=== PATIENT | female | born 1985 | race Caucasian/White ===

== ENCOUNTER 2022-12-02 05:51 | Emergency (ER) | payer MEDICAID, SELFPAY ==
[2022-12-02 05:55] VITALS: BP 120/68; PULSE 79; RESP 20; TEMP 36.9; O2SAT 99
--- NOTE | 2022-12-02 06:00 | RT.EKG_ITS ---
APPROVED REPORT Exam: Resting ECG Reason for Exam: chest pain Patient Location: E HR:72 bpm ECG Measurements Heart Rate 72 AXIS MS 169 P 30 QRSd 78 QRS 41 QT 365 T 23 QTc 399 Conclusion Sinus rhythm...normal P axis, V-rate 60- 99
--- NOTE | 2022-12-02 06:16 | ED.GENADUL_ITS ---
Discharge Plan Disposition Patient Disposition: Home Condition: Stable Discharge Details Clinical Impression: Myalgia, Tick bite Primary Care Provider: None,None ED Provider: Freedom Feliciano Meds and New Rx's Prescriptions: New doxycycline hyclate 100 mg capsule 100 mg PO BID 21 Days Qty: 42 0RF naproxen [Naprosyn] 500 mg tablet 500 mg PO BID Qty: 20 0RF Continued ibuprofen 600 MG tablet 600 mg PO QID PRN PRN (Reason: Pain) Qty: 20 0RF Discontinued amoxicillin 500 MG capsule 500 mg PO TID Qty: 30 0RF Discharge Instructions Instructions: Tick Bite (ED), Musculoskeletal Pain (ED) Discharge Data Discharge Physician: Freedom Feliciano Medical Decision Making Patient with generalized body aches with no fever states that she has been bit by ticks. Labs are unremarkable but a Lyme titer was sent. COVID and flu are negative. Patient will be treated with doxycycline and Naprosyn and will call for confirmation of the Lyme titer. Lab Data Lab results reviewed: Yes I reviewed the patient's lab results. HPI General Date/Time Provider Initiated Documentation: 12/02/22 06:15 . HPI Narrative: Patient patient presents emergency department complaint of generalized body aches all over states that she sometimes gets it by ticks but has not seen a rash. Denies any fevers denies any chills. Related Data Home Medications Medication Instructions Recorded Confirmed ibuprofen 600 mg tablet 600 mg PO QID PRN PRN Pain #20 tabs 08/04/15 doxycycline hyclate 100 mg capsule 100 mg PO BID 21 days #42 caps 12/02/22 naproxen 500 mg tablet (Naprosyn) 500 mg PO BID #20 tabs 12/02/22 Previous Rx's Medication Instructions Recorded ibuprofen 600 mg tablet 600 mg PO QID PRN PRN Pain #20 tabs 08/04/15 doxycycline hyclate 100 mg capsule 100 mg PO BID 21 days #42 caps 12/02/22 naproxen 500 mg tablet (Naprosyn) 500 mg PO BID #20 tabs 12/02/22 Allergies Allergy/AdvReac Type Severity Reaction Status Date / Time aspirin AdvReac Mild Unverified 08/04/15 23:03 General Stated Complaint: GenMedical VALENCIA: 4 Review of Systems Narrative: Review of Systems: Constitutional: No fevers, chills, sweats Eye: No recent visual problems ENT: No ear pain, nasal congestion, sore throat Respiratory: No shortness of breath, cough Cardiovascular: No Chest pain, palpitations, syncope Gastrointestinal: No nausea, vomiting, diarrhea Genitourinary: No hematuria Ricky/Lymph: Negative for bruising tendency, swollen lymph glands Endocrine: Negative for excessive thirst, excessive hunger Musculoskeletal: No back pain, neck pain, , muscle pain, decreased range of motion Integumentary: No rash, pruritus, abrasions Neurologic: Alert & oriented X 4 Psychiatric: No anxiety, depression PFSH All Active Problems (Updated 12/02/22 @ 07:18 by Freedom Feliciano MD) Myalgia (Acute) Tick bite (Acute) Social History Smoking/Tobacco Use Status: Never Smoking risk assessment performed?: Yes Alcohol Intake: current Alcohol Intake frequency: a few times a month Drug use: Never Housing: house Do you feel safe at home: Yes Do you feel safe in your relationship?: Yes Exam Narrative Exam Narrative: Exam; vitals signs as reported above Constitutional; In no acute distress, afebrile General: cooperative, healthy appearing, comfortable and no acute distress HEENT: Head: normal to inspection, no palpable skull fracture and normocephalic Eyes: l: appearance normal, both eyes and all related structures ]Pupils: PERRL EOM: EOM intact bilaterally Direct ophthalmoscopy: normal light reflex, normal conjunctiva, normal visual acuity Neck no JVD, supple Neck: normal visual inspection, full ROM and no lymphadenopathy Chest Chest: normal inspection of the chest Respiratory : normal respiratory effort and able to speak in complete sentences Cardio Rate: regular rate Rhythm: regular rhythm normal heart sounds S1 and S2 no murmurs, gallops, or rubs GI Inspection: normal to inspection, normal bowel sounds, soft, non tender, non distended, no organomegally Back/Spine/ no CVA tenderness Thoracic/Lumbar Spine: no tenderness or deformities Skin no rashes or lesions Neuro: patient alert and no meningeal signs, Cranial Nerves: CN's II-XI intact bilaterally, Cognition: normal cognition, Speech: speech normal, Gait: normal gait, Depp tendon reflexes normal 2+ Extremities, no edema, full range of motion, normal strength Course Vital Signs Vital signs: Vital Signs Temperature 36.9 C 12/02/22 05:55 Pulse 79 12/02/22 05:55 Respiratory Rate 20 12/02/22 05:55 Blood Pressure 120/68 12/02/22 05:55 Pulse Oximetry 99 12/02/22 05:55 Temperature 36.9 C 12/02/22 05:55 Temperature Source Oral 12/02/22 05:55 Pulse 79 12/02/22 05:55 Respiratory Rate 20 12/02/22 05:55 Respiratory Effort Normal, Non-Labored 12/02/22 06:02 Blood Pressure 120/68 12/02/22 05:55 Blood Pressure Position Sitting 12/02/22 05:55 Pulse Oximetry 99 12/02/22 05:55 Oxygen Delivery Method Room Air 12/02/22 05:55 Oxygen Flow Rate 0 12/02/22 05:55 Pain Level 8 12/02/22 05:55
[2022-12-02 06:33] VITALS: RESP 16
[2022-12-02 06:41] LABS: Abs Immature Grans 0.03 10^3/uL (0.0-0.06); Absolute Basophil Count 0.05 10^3/uL (0.0-0.2); Absolute Eosinophil Count 0.06 10^3/uL (0.0-0.7); Absolute Lymphocyte Count 1.06 10^3/uL (1.2-3.4); Absolute Monocyte Count 0.43 10^3/uL (0.1-0.8); Absolute Neutrophil Count 3.64 10^3/uL (1.2-6.7); Basophils % 0.9; Eosinophils % 1.1; HCT 44.4 % (36.0-46.0); HGB 14.8 g/dL (11.2-15.7); Immature Grans % 0.6; Lymphocytes % 20.1; MCHC 33.3 % (32.0-36.0); MCV 90 fL (80-95); MPV 9.7 fL (8.0-11.0); Monocytes % 8.2; Neutrophils % 69.1; Platelet Count 262 10^3/uL (130-400); RBC 4.93 10^6/uL (3.93-5.22); RDW 12.7 % (11.7-14.6); RDW-SD 41.8 fL; WBC 5.27 10^3/uL (4.4-10.8)
[2022-12-02 06:56] LABS: ALT 30 U/L (14-59); AST 30 U/L (15-37); Albumin 3.5 g/dL (3.4-5.0); Alkaline Phosphatase 79 U/L (46-116); Anion Gap 9.1 mmol/L (3-11); BUN 14 mg/dL (7-18); Bilirubin, Total 0.4 mg/dL (0.2-1.0); CO2 23.9 mmol/L (21.0-32.0); CREATININE 0.7 mg/dL (0.55-1.02); Calcium 8.8 mg/dL (8.5-10.1); Chloride 103 mmol/L (98-107); Estimated GFR 114.16 (mL/min/1.73m2); Glucose 123 mg/dL (74-106); Potassium 4.1 mmol/L (3.5-5.1); Sodium 136 mmol/L (136-145); Total Protein 7.1 g/dL (6.4-8.2)
--- OUTSIDE RECORDS SUMMARY | 2022-12-02 08:03 | XMS_ITS | CCD ---
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 Allergies Unknown or Not Available. Procedures Unknown or Not Available. History of Immunizations Unknown or Not Available. Problems Unknown or Not Available. Results GLUCOSE TOLERANCE TEST THREE HOUR* - Collect Date/Time: 05/01/2021 09:38 Test Name Code Test Result Test Units Test Ref Rang e Fasting Glucose 3665-7 81 mg/dL L=80 H=11 6 1 hour Glucose 177 mg/dL L=80 H=200 2 hour Glucose 93 mg/dL L=80 H=150 3 hour Glucose 3665-7 127 mg/dL L=80 H=116 Active Medications Unknown or Not Available. Medications Administered During Visit Unknown or Not Available. Encounters Encounter Diagnosis Diagnosis Code Start Date Routine care [id number] Social History Smoking Status Code Start Date End Date Never smoker [id number] Patient Decision Aids Unknown or Not Available. Discharge Instructions You were admitted to [facility] on 05/01/2021 09:17 with a principal diagnosis of Encounter for supervision of other normal , third trimester You had the following tests done:GLUCOSE TOLERANCE TEST THREE HOUR* You were discharged from [facility] on 05/01/2021 09:17 Should you have any questions prior to discharge, please contact a member of your healthcare team. If you have left the hospital and have any questions, please contact your primary care physician. Chief Complaint and Reason For Visit Unknown or Not Available. Function Status Unknown or Not Available. Plan of Care Unknown or Not Available. Referral/Transition of Care Unknown or Not Available.
[2022-12-03 11:04] LABS: Lyme Ab w Rflx to Lyme Confirm Negative (Negative)
== END 2022-12-02 07:30 | disposition home or self-care (01) ==
PROVIDERS: Emergency Provider Emergency Medicine Emergency Medical Services
DX: R52 Pain, unspecified (principal); W57.XXXA Bitten or stung by nonvenomous insect and other nonvenomous arthropods, initial encounter
CPT/HCPCS: 80053; 87426; 93005; 99283; 85025; 86618; 93010; 99284